=== PATIENT | female | born 1935 | race Caucasian/White ===

== ENCOUNTER → 2016-11-18 | Outpatient (CLI) | payer OTHER ==
[~2016-11-18] VITALS: Ht 165.1 cm; Wt 73.8 kg
[~2016-11-18] MED LIST: ALLEGRA ALLERG180 MG PO; AMLODIPINE BESYL5 MG PO; APAP500 PO; ASPIRIN EC81 M1 PO; ASPIRIN325; BENICAR40 MG PO; BISOPROLOL FUMA10 MG PO; BYSTOLIC 5 MG5 MG PO; BYSTOLIC10 MG PO; CALCIUM 600 +1 EAC5 PO; CENTRUM SILVER1 EAC4 PO; CLARITIN10 M2 PO; CRESTOR40 MG PO; EDARBYCLOR 40-1 EACH PO; FISH OIL 1,2001 EAC4 PO; GLUCOPHAGE500 MG PO; NAPROSYN500 MG PO; OCUVITE EYE +1 EACH PO; PRILOSEC40 MG PO; STOOL SOFTENER1 EAC2 PO; VESICARE 5 MG TA5 MG PO; VESICARE10 M1 PO
--- NOTE | ~2016-11-18 | H ---
[facility] [place] [address] HISTORY AND PHYSICAL Name: KUMAR BAUER Room #: REG JOHN Ed.#: [id number] Admission: 11/18/16 Attend Phys: Bradly Angela MD Discharge: Date of : 35 Report #: [id number] THIS REPORT FOR: //name// CC: Rosie Angela DATE OF REGISTRATION: 11/18/2016. Followup visit for L4-L5 spondylolisthesis, neural compression. Bilateral lower extremities numbness and low back pain. HISTORY OF PRESENT ILLNESS: The patient is here today requesting an epidural injection. Her last injection was in 2013. She has had very sporadic injections when her pain becomes severe and always had a good response. I reviewed her last films performed L4-L5 and her previous injection history. She is taking excellent care of herself doing water exercises and exercises at home on nearly every day. She says she has a strong score of anyone she knows. She looks good. She is hopeful, I will be able to provide some relief with the injection today. PAST MEDICAL HISTORY: Significant for coronary artery disease. She had stent placed in 2004. She has done a great job of maintaining her health since that time. She had a angioplasty also on her right femoral artery, a few years later and then nothing since. She has familial hyperlipidemia. The patient also has diabetes and diabetic neuropathy, which also is manifested with that of bilateral leg numbness and tingling in the feet. MEDICATIONS: Reviewed and reconciled from electronic medical record. She is not on blood thinner. ALLERGIES: None. PHYSICAL EXAMINATION: VITAL SIGNS: Blood pressure 112/54, heart rate 72, respirations 20. She is 5 feet, 5 inches, with a BMI of 27.1. GENERAL: She looks fit for age. EXTREMITIES: Moves easily from sitting to standing position, ambulates without difficulty. CHEST: Clear. Cardiac rhythm is regular. MUSCULOSKELETAL: Examination of the spine reveals excellent range of motion. She can almost put her palm on the floor. Extension was performed with some exacerbation of pain. Straight leg raising bilaterally is negative other than what numbness in the feet. [facility] [address] [place] [address] HISTORY AND PHYSICAL Name: KUMAR BAUER Juan Room #: REG [facility]#: [id number] Admission: 11/18/16 Attend Phys: Bradly Angela MD Discharge: Date of : 35 Report #: [id number] IMPRESSION: 1. Chronic low back pain with radiculopathy, bilateral. 2. Coronary artery disease. 3. Hyperlipidemia. 4. . RECOMMENDATIONS: Lumbar epidural injection under fluoroscopic guidance. PROCEDURE: She was taken to the fluoroscopic suite, placed prone, skin prepped with ChloraPrep. Skin anesthetized over L4-L5. A 20-gauge Tuohy epidural needle was advanced into the epidural space with loss of resistance technique. There was no blood or CSF, aspirated 1 mL of Omnipaque, injected with excellent spread of dye observed into the epidural space followed by 3 mL of 0.5% lidocaine mixed with 80 mg of triamcinolone. She tolerated the procedure well and was observed for 45 minutes and discharged with a followup visit as needed. By: 0911 0929 Bradly Angela MD /nt
[2016-11-18 08:39] VITALS: BP 112/54
== END | disposition home or self-care (01) ==
LOC: PAIN 06:31
DX: M54.16 Radiculopathy, lumbar region (principal); I25.10 Atherosclerotic heart disease of native coronary artery without angina pectoris; E78.5 Hyperlipidemia, unspecified

== ENCOUNTER → 2017-03-14 | Outpatient (CLI) | payer OTHER ==
[~2017-03-14] VITALS: Ht 165.1 cm; Wt 73.9 kg
[2017-03-14 09:13] VITALS: BP 130/65
== END | disposition home or self-care (01) ==
LOC: PAIN 06:39
DX: M54.16 Radiculopathy, lumbar region (principal); M43.16 Spondylolisthesis, lumbar region

== ENCOUNTER → 2017-12-15 | Outpatient (CLI) | payer OTHER ==
[~2017-12-15] VITALS: Ht 165.1 cm; Wt 74.2 kg
[~2017-12-15] MED LIST changes: +METAMUCIL POWD822 G2 PO; +VALACYCLOVIR1000 MG PO
--- NOTE | ~2017-12-15 | HPC ---
[facility] [place] [address] PAIN MANAGEMENT CONSULTATION Name: KUMAR BAUER Room #: REG JOHN Ed.#: [id number] Admission: 12/15/17 Attend Phys: Bradly Angela MD Discharge: Date of : 35 Report #: [id number] THIS REPORT FOR: //name// CC: Larry Izquierdo MD [facility] Rosie Angela DATE OF SERVICE: 12/15/2017 Followup visit for chronic low back pain with radiculopathy. The patient returns to the clinic today with primarily a right lumbar radiculopathy extending from the low back through the buttock and into the lower leg. Although this is the reason for her visit today and her primary pain, she has another very significant second pain in her left shoulder. She has degenerative osteoarthritis. She has followed with Dr. Muñoz. Dr. Muñoz has offered her a shoulder replacement, but she is not interested. She may benefit from a cortisone injection in her shoulder, but in the past when we have injected her back, she oftentimes has good results also with the absorption of the cortisone reducing inflammation in her shoulder joint. We decided that today we will proceed today with an injection once again hoping that we can get good coverage along the right side as before. I used a left paramedian approach in her last injection yet medicine seemed to spread well into the right lateral recess. She describes her last epidural injection as 100% successful for 4 months. MEDICATIONS: Reviewed and reconciled. She is on no blood thinners. For pain, she has listed only acetaminophen 2 tablets twice a day. Her maximum daily dose when the pain is severe is 2000 mg. ALLERGIES: None. PQRS review demonstrates a history of osteoarthritis involving the upper extremity, shoulders bilaterally, left worse than right. She is a fit and active 82-year-old with a BMI of 27.2. She denies use of opioid medication. She is not a fall risk at this time. Pain intensity is 7/10. PHYSICAL EXAMINATION: VITAL SIGNS: Blood pressure 195/82, heart rate 70 and respirations 18. GENERAL: She is alert and oriented. Very pleasant and easygoing. She gives an excellent history. She is able to move independently from sitting to standing position. Her gait is stable. HEENT: Normal. NECK: Supple. [address] [address] PAIN MANAGEMENT CONSULTATION Name: KUMAR BAUER Juan Room #: REG [facility] Jacki#: [id number] Admission: 12/15/17 Attend Phys: Bradly Angela MD Discharge: Date of : 35 Report #: [id number] CHEST: Examination of the chest is clear. CARDIAC: Rhythm is regular. MUSCULOSKELETAL: Examination of the shoulders bilaterally reveals arthropathy with pain in the left shoulder of a severe nature with internal and external rotation. She has weakness spreading to the deltoid, triceps and biceps. Technical Fellow strength is normal. Examination of the low back reveals rotational scoliosis and spondylosis. She has tenderness with forward flexion and extension. Extension reproduces a radicular pain into the right leg following an L4-L5 distribution. Sensation intact. Deep tendon reflexes are diminished in the lower extremities symmetrically. IMPRESSION: 1. Low back pain with radiculopathy, left L4-L5 distribution secondary to anterolisthesis. 2. Osteoarthritis, left shoulder. PROCEDURE: Epidural steroid injection under fluoroscopic guidance. She was taken to the fluoroscopic suite and placed prone. Skin was prepped with ChloraPrep. Skin anesthetized first on the left as before. I advanced the needle nicely into the epidural space, however, 0.5 mL of Omnipaque demonstrated spread almost exclusively into the left lateral recess. The needle was removed. I repositioned the needle from the right, but found it more difficult to enter the epidural space from that angle due to osteoarthritic changes and bone spurring. I returned back to the left and advanced the needle back into the epidural space, spreading on this occasion closer to the midline. When I injected 0.25 mL of Omnipaque, we demonstrated a right-sided spread as we had seen previously. I then injected a total of 3 mL of 0.5% lidocaine mixed with 80 mg of triamcinolone. She tolerated the procedure well. By the time the patient returned to the recovery room, she was having some weakness in her legs related to the local anesthetic effect. I do not believe that she had an intrathecal injection. She was watched about an hour longer than normal, but left in good condition and pain score on discharge was 0. Followup is planned as needed. No medications were ordered. By: [id number] Bradly Angela MD /nt
[2017-12-15 10:54] VITALS: BP 195/82
== END | disposition home or self-care (01) ==
LOC: PAIN 09-22 12:33
DX: M54.16 Radiculopathy, lumbar region (principal); G89.29 Other chronic pain; M19.012 Primary osteoarthritis, left shoulder; M43.16 Spondylolisthesis, lumbar region; Z79.82 Long term (current) use of aspirin; Z79.899 Other long term (current) drug therapy

== ENCOUNTER → 2018-08-14 | Outpatient (CLI) | payer OTHER ==
[~2018-08-14] VITALS: Ht 160 cm; Wt 70.6 kg
[~2018-08-14] MED LIST changes: -APAP500 PO; +KEFLEX500 M1 PO; +NORVASC5 MG PO; +TYLENOL EXTRA500 MG PO; +VOLTAREN GEL 1100 G2 TOP
--- NOTE | ~2018-08-14 | HPC ---
[facility] [address] [place] [address] PAIN MANAGEMENT CONSULTATION Name: KUMAR BAUER Room #: REG JOHN [facility]#: [id number] Admission: 08/14/18 Attend Phys: Bradly Angela MD Discharge: Date of : 35 Report #: [id number] THIS REPORT FOR: //name// CC: Rosie Angela DATE OF SERVICE: 08/14/2018 Followup visit for lumbar spondylolisthesis, chronic low back pain with radiculopathy. The patient returns to pain clinic today with her daughter. She would like another epidural injection. The record will reflect that she has had excellent response to these injections typically lasting 3+ months. Her last lumbar epidural injection was performed in December. She does have a rather tight stenosis at that level and on one of her injections she did get rather numb, required to stay in the recovery room for a couple of extra hours until the local anesthetic dissipated. This may have been in a subarachnoid injection or perhaps a subdural but not subarachnoid injection. Today, she reports her pain level 8 and her usual location is low back radiating down into the legs. She denies significant weakness. She also complains bitterly of bilateral shoulder pain. She has been seen by an orthopedic surgeon who has provided injections for her and I have done so as well with limited improvement. PRP may be of some benefit. PQRS REVIEW: 1. Ongoing osteoarthritis of bilateral shoulders. 2. BMI is 27. 3. Vital signs: Blood pressure 137/59, heart rate 67. 4. Pain intensity 8 of the low back radiating into legs with movement. 5. She has not fallen in the last 3 months and does not appear to be a fall risk. 6. No blood thinner. 7. No evidence of hypertension. 8. She is not on opioid agreement. 9. She does not use tobacco or alcohol. PHYSICAL EXAMINATION: Reveals a pleasant 82-year-old, alert and oriented. No signs of depression, anxiety or dementia. She is very sharp and direct. Blood pressure 137/59, heart rate 67, respirations 16, O2 sat 97. She is afebrile. She is able to move from sitting to standing position, but walks with mild antalgic feature. She has pain with forward flexion, extension and tenderness across the low back. [address] [address] PAIN MANAGEMENT CONSULTATION Name: KUMAR BAUER Room #: REG [facility]#: [id number] Admission: 08/14/18 Attend Phys: Bradly Angela MD Discharge: Date of : 35 Report #: [id number] IMPRESSION: Chronic low back pain with radiculopathy secondary to lumbar spondylolisthesis, L4-L5. RECOMMENDATIONS: Repeat epidural injection under fluoroscopic guidance. PROCEDURE: She was taken to fluoroscopic suite, placed prone, skin prepped with ChloraPrep. Skin anesthetized over the L4-L5 interspace. A 20-gauge Tuohy epidural needle was advanced in the epidural space with loss of resistance technique. No blood or CSF was aspirated. A 1 mL of Omnipaque injected. Good spread of dye observed in the epidural space, followed by 3 mL of 0.5% lidocaine mixed with 80 mg of triamcinolone. She tolerated the procedure well and was observed for 45 minutes and discharged. Follow up as needed. By: [id number] 1130 Bradly Angela MD /nt
[2018-08-14 14:40] VITALS: BP 170/69
== END | disposition home or self-care (01) ==
LOC: PAIN 00:45
DX: M43.16 Spondylolisthesis, lumbar region (principal); M54.16 Radiculopathy, lumbar region; G89.29 Other chronic pain; M19.012 Primary osteoarthritis, left shoulder; M19.011 Primary osteoarthritis, right shoulder; Z79.899 Other long term (current) drug therapy; Z79.82 Long term (current) use of aspirin

== ENCOUNTER → 2019-02-19 | Outpatient (CLI) | payer OTHER ==
[~2019-02-19] VITALS: Ht 160 cm; Wt 73.8 kg
[~2019-02-19] MED LIST changes: +CLEARLAX17 GM PO; +ESTRADIOL42.5 GM VAG; +FLUTICASONE PRO16 GM NASAL; +IRBESARTAN300 MG PO; +METAMUCIL0.4 GM PO; +METRONIDAZOLE59 ML TOP; +PRILOSEC OTC20 MG PO; -PRILOSEC40 MG PO; +PROBIOTIC1 EAC1 PO
--- NOTE | ~2019-02-19 | HPC ---
[facility] [place] [address] PAIN MANAGEMENT CONSULTATION Name: KUMAR BAUER Room #: REG Elly Wadr.#: [id number] Admission: 02/19/19 ������������������ Attend Phys: Bradly Angela MD Discharge: ������������������ Date of : 35 Report #: [id number] THIS REPORT FOR: //name// CC: Rosie Angela DATE OF SERVICE: 02/19/2019 Followup visit for severe low back pain with radiculopathy secondary to anterolisthesis of L4 on L5. The patient returns to pain clinic today with requesting an epidural injection. She has had a good response to injection and request that I inject her exactly in the same location as I did previously. She said she had months of good pain relief. I reviewed her MRI and she has a grade 1 anterolisthesis with a bulging of an uncovered disk along with marked facet hypertrophy and ligamentum thickening with severe trefoil type central canal narrowing and crowding of the lumbosacral nerve roots. There is [id number] right and left neural foraminal narrowing at that level. We have discussed surgical options in the past that she will have no part of that. She has a second pain generator is her left shoulder. She has seen Dr. Clifford Lehman. I have suggested that she continue to see me and followup for further monitoring and evaluation. She would be a candidate for reverse shoulder replacement, but does not want any part of it. The severe shoulder pain really is her primary limiting pain, I think although the low back, pain limits her mobility. She would like the injection for the low back. PHYSICAL EXAMINATION: She is pleasant, alert, oriented, 83-year-old. She moves from sitting to standing position, walks with antalgic features. Blood pressure is 183/73, heart rate 66, respirations 18. Examination of the shoulders bilaterally, pain in all range of motion localized tenderness. There is maybe a small effusion on the left. Examination of the low back reveals tenderness across the lumbosacral segment. Bilateral straight leg raising pain is noted. There is slight scoliosis noted of the spine with some rotation. IMPRESSION: 1. Severe low back pain with radiculopathy secondary to anterolisthesis grade 1 L4-L5. 2. 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 3. Bilateral osteoarthritis involving shoulders. [address] [address] PAIN MANAGEMENT CONSULTATION Name: KUMAR BAUER [id number] Admission: 02/19/19 ������������������ Attend Phys: Bradly Angela MD Discharge: ������������������ Date of : 35 Report #: [id number] Recommendation for today epidural steroid injection, L4-L5 under fluoroscopic guidance. PROCEDURE: She was taken to fluoroscopic suite, placed prone, skin prepped with ChloraPrep. Skin anesthetized over the L4-L5 interspace. A 20-gauge Tuohy epidural needle was advanced in the epidural space with loss of resistance technique. There was no blood or CSF aspirated. A 1 mL of Omnipaque injected. Good spread of dye observed in the epidural space followed by 3 mL of 0.5% lidocaine mixed with 80 mg of triamcinolone. She tolerated the procedure well and was observed for 45 minutes and discharged. Followup visit planned on an as needed basis for treatment. ��������������������������������������������� ���������������������������������������� By: ��������������������������������������������� 1728 0025 Bradly Angela MD /nt
[2019-02-19 15:28] VITALS: BP 183/73
--- NOTE | 2019-02-19 15:59 | NUR ---
Pain Clinic Assessment: 1. History of Osteoarthritis: Not Applicable History of Rheumatoid Arthritis: Left Upper Extremity Right Upper Extremity 2. Height: 5 ft. 3 in. 160.0 cm. Weight: 162.6 lb. oz. 73.755 kg. Patient's BMI: 28.8 3. Vital Signs: BP: 183/73 Pulse: 66 Resp: 18 Temp: 02 Sat: 98 ECG Mon: 4. Pain Intensity: 6 5. Fall Risk: Dizziness: N Needs help standing or walking: N Fallen in the last 3 months: N Fall risk comments: 6. Patient on Blood Thinner: None 7. History of Hypertension: Y 8. Opioid Therapy greater than 6 weeks: N Opiate Contract Signed: 9. Risk Assessment Tool Provided: 0-low risk 10. Functional Assessment Tool: 43/ 11. Recreational Drug Use: Never Drug Type: Tobacco Use: Never Smoker Tobacco Type: Amount or Packs/day: How Many Years: Alcohol Use: No Frequency: Quant:
== END | disposition home or self-care (01) ==
LOC: PAIN 07:03
DX: M43.16 Spondylolisthesis, lumbar region (principal); M47.22 Other spondylosis with radiculopathy, cervical region; M19.012 Primary osteoarthritis, left shoulder; M19.011 Primary osteoarthritis, right shoulder; Z79.899 Other long term (current) drug therapy

== ENCOUNTER → 2019-04-09 | Outpatient (CLI) | payer OTHER ==
[~2019-04-09] VITALS: Ht 167.6 cm; Wt 72.1 kg
--- NOTE | ~2019-04-09 | HPC ---
[facility] [place] [address] PAIN MANAGEMENT CONSULTATION Name: KUMAR BAUER Room #: REG JOHN Ed.#: [id number] Admission: 04/09/19 ������������������ Attend Phys: Bradly Angela MD Discharge: ������������������ Date of : 35 Report #: [id number] THIS REPORT FOR: //name// CC: Rosie Angela DATE OF SERVICE: 04/09/2019 Followup visit for chronic low back pain and radiculopathy. The patient returns to pain clinic today for a consultation. I spent 25 minutes with her today in consultation and examination. She has chronic pain and a grade 1 anterolisthesis as well as bulging of the L4-L5 disk creating moderate to severe spinal stenosis to 6 mm at that level. We discussed options. I discussed 6 separate options with her; medication management, injection therapies, physical therapy and exercise, advanced therapies included spinal cord stimulation, minimally invasive surgical techniques for stenosis including MILD and open decompressive laminectomy. We went through each of these options. As noted frequently throughout the chart, she is not interested in surgery. She has done well with her left shoulder, treated by Dr. Lehman. An injection provided in his office has done her worlds of good. She complains mostly today of pain across her low back with radiation to the right hip. PQRS REVIEW: 1. History of degenerative osteoarthritis involving shoulders primarily. 2. Five feet 6 inches, 159 pounds, BMI of 25.7. 3. Vital signs, blood pressure 142/67, heart rate 75, O2 sat 97, 16 respirations. 4. Pain intensity 5/10 on average. 5. She has fallen once in the last 3 months, but needs no help standing or walking. She is not dizzy. I would consider based on history of fall risk. 6. No blood thinners. 7. She does have a history of hypertension and she is treated with medications provided by her primary care physician, Dr. Rosie Ibarra. All of her medications were reviewed and reconciled. 8. She takes no opioids. 9. She completed an opioid risk score of 0. 10. Functional assessment score is 43/70 suggesting a fair impact of her pain on activities of daily living. 11. She denies use of tobacco and alcohol. PHYSICAL EXAMINATION: Vital signs as noted above. She is pleasant, alert and oriented, without any signs of anxiety, depression or dementia. She can [facility] [address] [place] [address] PAIN MANAGEMENT CONSULTATION Name: KUMAR BAUER Room #: REG CLI Mickey#: [id number] Admission: 04/09/19 ������������������ Attend Phys: Bradly Angela MD Discharge: ������������������ Date of : 35 Report #: [id number] independently move from sitting to standing position, walks with a moderate antalgic features. She has tenderness of the shoulder but the left is better after her injection. Decreased range of motion in all planes. Examination of the low back reveals tenderness across the lumbosacral segment and bilateral straight leg raising discomfort. There is a slight rotational scoliosis noted. Sensation is intact with no focal numbness. She has mild generalized weakness. MRI again showing grade 1 anterolisthesis at L4-L5 as the prominent finding with moderate to severe central stenosis as well as severe left and right lateral recess stenosis. IMPRESSION: 1. Chronic low back pain with radiculopathy secondary to above. 2. Spondylosis of cervical and lumbar spine. 3. Osteoarthritis involving shoulders. RECOMMENDATION: After our discussion, we will continue to support the less invasive techniques for pain management, particularly remaining active. Use of Tylenol as a medication to ease discomfort. Epidural injections can be provided periodically as they provide some measure of relief for a short time and I suspect that this will be true going forward. She may want to consider a trial of spinal cord stimulation or perhaps a consultation for minimally invasive lumbar decompression, which I think would be more helpful than the Vertos procedure. She again stressed her reluctance to pursue any surgical options. Follow up as needed. ��������������������������������������������� ���������������������������������������� By: ��������������������������������������������� 1300 2124 Bradly Angela MD /nt
[2019-04-09 08:55] VITALS: BP 142/67
--- NOTE | 2019-04-09 09:03 | NUR ---
Pain Clinic Assessment: 1. History of Osteoarthritis: Not Applicable History of Rheumatoid Arthritis: Left Upper Extremity Right Upper Extremity 2. Height: 5 ft. 6 in. 167.6 cm. Weight: 159.0 lb. oz. 72.122 kg. Patient's BMI: 25.7 3. Vital Signs: BP: 142/67 Pulse: 75 Resp: 16 Temp: 02 Sat: 97 ECG Mon: 4. Pain Intensity: 5 5. Fall Risk: Dizziness: N Needs help standing or walking: N Fallen in the last 3 months: Y Fall risk comments: 6. Patient on Blood Thinner: None 7. History of Hypertension: Y 8. Opioid Therapy greater than 6 weeks: N Opiate Contract Signed: 9. Risk Assessment Tool Provided: 0-low risk 10. Functional Assessment Tool: 43/ 11. Recreational Drug Use: Never Drug Type: Tobacco Use: Never Smoker Tobacco Type: Amount or Packs/day: How Many Years: Alcohol Use: No Frequency: Quant:
== END ==
LOC: PAIN 06:46
DX: M47.26 Other spondylosis with radiculopathy, lumbar region (principal); M47.812 Spondylosis without myelopathy or radiculopathy, cervical region; M51.16 Intervertebral disc disorders with radiculopathy, lumbar region; M43.16 Spondylolisthesis, lumbar region; M48.061 Spinal stenosis, lumbar region without neurogenic claudication; M19.012 Primary osteoarthritis, left shoulder; M19.011 Primary osteoarthritis, right shoulder; G89.29 Other chronic pain

== ENCOUNTER → 2019-06-13 | Outpatient (CLI) | payer OTHER | LOC: CAT 07:08 | PROVIDERS: Specialist | DX: N28.1 Cyst of kidney, acquired (principal); I25.10 Atherosclerotic heart disease of native coronary artery without angina pectoris; K80.20 Calculus of gallbladder without cholecystitis without obstruction; N39.0 Urinary tract infection, site not specified ==

== ENCOUNTER → 2019-11-06 | Outpatient (CLI) | payer OTHER | LOC: SJCVC 09:36 | DX: I25.10 Atherosclerotic heart disease of native coronary artery without angina pectoris (principal); I12.9 Hypertensive chronic kidney disease with stage 1 through stage 4 chronic kidney disease, or unspecified chronic kidney disease; E11.22 Type 2 diabetes mellitus with diabetic chronic kidney disease; N18.9 Chronic kidney disease, unspecified; E11.21 Type 2 diabetes mellitus with diabetic nephropathy; I65.29 Occlusion and stenosis of unspecified carotid artery; I73.9 Peripheral vascular disease, unspecified; E78.00 Pure hypercholesterolemia, unspecified; K21.9 Gastro-esophageal reflux disease without esophagitis; M15.9 Polyosteoarthritis, unspecified; Z79.82 Long term (current) use of aspirin; Z79.899 Other long term (current) drug therapy ==

== ENCOUNTER → 2019-11-12 | Outpatient (CLI) | payer OTHER | LOC: SJCVCIMAG 08:25 | DX: I08.2 Rheumatic disorders of both aortic and tricuspid valves (principal); I45.10 Unspecified right bundle-branch block; R00.0 Tachycardia, unspecified; I25.10 Atherosclerotic heart disease of native coronary artery without angina pectoris; E11.22 Type 2 diabetes mellitus with diabetic chronic kidney disease; N18.9 Chronic kidney disease, unspecified; Z79.899 Other long term (current) drug therapy ==

== ENCOUNTER → 2020-04-11 | Outpatient (CLI) | payer OTHER ==
[~2020-04-11] MED LIST changes: +ADULT ASPIRIN R81 MG PO; +HYOSCYAMINE0.125 M1 PO; +METHENAMINE1 GM PO; +VITAMIN C500 M2 PO; +WELLBUTRIN SR150 MG PO
== END ==
LOC: SJCVC 09:08
PROVIDERS: ATTEND Internal Medicine Cardiovascular Disease
DX: I45.2 Bifascicular block (principal); R94.31 Abnormal electrocardiogram [ECG] [EKG]; I25.10 Atherosclerotic heart disease of native coronary artery without angina pectoris; I73.9 Peripheral vascular disease, unspecified; I65.29 Occlusion and stenosis of unspecified carotid artery; I10 Essential (primary) hypertension; E78.00 Pure hypercholesterolemia, unspecified; K21.9 Gastro-esophageal reflux disease without esophagitis; R32 Unspecified urinary incontinence; E11.9 Type 2 diabetes mellitus without complications; M15.9 Polyosteoarthritis, unspecified; Z82.49 Family history of ischemic heart disease and other diseases of the circulatory system; Z79.899 Other long term (current) drug therapy; Z79.82 Long term (current) use of aspirin

== ENCOUNTER 2020-04-14 05:23 | Inpatient (IN) | payer OTHER ==
[~2020-04-14] VITALS: Ht 170.2 cm; Wt 70.4 kg
--- NOTE | ~2020-04-14 | EMS ---
[facility] [address] [place] [address] EMS Patient Care Report Name: OMER BAUER Room #: REG TIARRA Echeverria#: [id number] Admission: 04/14/20 Attend Phys: Discharge: Date of : 35 Report #: [id number] THIS REPORT FOR: //name// Report Transmitted: 04/14/2020 06:06 EMS Care Summary [facility] MED-ACT Incident [id number] @ 04/14/2020 04:23 Incident Location [address] [place] [address] Patient KUMAR BAUER Female, 84 Years 1935 Patient Address [address] [place] [address] Patient History Hypertension (HTN),Urinary Tract Infection (UTI),Anxiety,Genital Herpes, Patient Allergies No known allergies, Patient Medications Nebivolol, Wellbutrin, Omeprazole, Estrace, Amlodipine, Chief Complaint she's been babbling and talking randomly-per son Disposition Transported No Lights/[place] Dispatch Reason Psychiatric Problem/Abnormal Behavior/Suicide Attempt Transported To [facility] Narrative Medic 1149 dispatched to Behavioral. Pt's son states that over the last 3 days, pt has become more and more confused and repeatedly rambles on about random things. Son states that today it has gotten worse and he has not been able to effectively communicate with pt due to her inability to focus in a [facility] [address] [place] [address] EMS Patient Care Report Name: OMER BAUER Room #: REG [facility]#: [id number] Admission: 04/14/20 Attend Phys: Discharge: Date of : 35 Report #: [id number] conversation. Son states that over the last couple of hours she has been talking repeatedly about needing to find a little sliver of metal in her bathroom and that she needs bjxg-do-snxe contact in order to have a conversation. Son states pt has hx of frequent UTI's about every 5 weeks or so. Son states that he has never seen the pt this confused/ uncooperative. No recent hx of cough, fever, contact with COVID pt's. Pt normally able to live on her own but may be experiencing anxiety because she is getting ready to move in to a chcf in approx 2 weeks per son. Upon arrival, pt found sitting upright on the toilet. Pt alert and speaking to Q33. Pt would repeatedly refuse to speak to other crew members and stated that she needs fzqf-lf-ybui contact and that she needs help finding the piece of metal in the box in her bathroom. No respiratory distress noted. Skin warm, dry, pink. Pt initially refused to let us acquire a set of vitals but then allowed 1 set to be taken. Pt refused to let us take a blood sugar. Pt able to stand but when asked to walk, refused to do so and would continue to state that she will not go until she finds the metal. V/S acquired on scene. Pt agreed to go to the hospital but when stood up, she refused to walk to cot. 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 Pt buckled in and taken to ambulance. Subsequent V/S differed due to pt refusing to let us touch her. Pt transported in position of comfort. Upon arrival, pt moved from cot to bed via sheet drag with no incident. Report given to ORGANIZATIONAL CONSULTANT. Medic 1149 clear. 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 It is designed to provide pertinent information for the following purposes: continuity of care, clinical quality, and state data reporting. The complete legal record is available to ED staff and administrators of the receiving hospital in [employer]'s Patient Tracker. All data is provided "as is."
[~2020-04-14 05:23] MED LIST changes: -ADULT ASPIRIN R81 MG PO; -HYOSCYAMINE0.125 M1 PO; -METHENAMINE1 GM PO; -VITAMIN C500 M2 PO; -WELLBUTRIN SR150 MG PO
[2020-04-14 05:24] VITALS: BP 188/96
[2020-04-14 06:01] LABS: ABSOLUTE NEUTROPHILS 7.2 thou/uL (1.4-8.2); BASOPHILS 0.4 % (0.0-2.0); EOSINOPHILS 0.2 % (0.0-3.0); HEMOGLOBIN 11.9 gm/dL (12.0-15.0); MCH 36.6 pg (26.0-34.0); MCV 107.8 fL (80.0-100.0); MONOCYTES 7.5 % (1.0-8.0); PLATELET COUNT 184 thou/uL (150-400); POLYS 83.9 % (36.0-66.0); RBC 3.25 mil/uL (4.20-5.00); RDW 15.4 % (10.5-14.5); WBC 8.6 thou/uL (4.0-11.0)
[2020-04-14] MEDS ORDERED: ADULT ASPIRIN R81 MG PO (06:07)
[2020-04-14] MEDS ORDERED: METHENAMINE1 GM PO (06:10)
[2020-04-14] MEDS ORDERED: VITAMIN C500 M2 PO (06:10)
[2020-04-14] MEDS ORDERED: WELLBUTRIN SR150 MG PO (06:12)
[2020-04-14] MEDS ORDERED: HYOSCYAMINE0.125 M1 PO (06:12)
[2020-04-14 06:14] LABS: CALCIUM 9.3 mg/dL (8.5-10.1); CREATININE 1.1 mg/dL (0.6-1.0); MAGNESIUM 1.9 mg/dL (1.8-2.4); POTASSIUM 4.2 mmol/L (3.5-5.1)
[2020-04-14 07:52] LABS: URINE BILIRUBIN NEGATIVE (Negative); URINE BLOOD 3+ (Negative); URINE CLARITY CLOUDY; URINE COLOR YELLOW; URINE GLUCOSE-RANDOM* NEGATIVE (Negative); URINE KETONES NEGATIVE (Negative); URINE NITRITE-REFLEX NEGATIVE (Negative); URINE PROTEIN (DIPSTICK) 2+ (Negative); URINE UROBILINOGEN 0.2 E.U./dl (0.2-1.0)
[2020-04-14 08:01] LABS: URINE LEUKOCYTES-REFLEX 3+ (Negative)
[2020-04-14 08:49] LABS: URINE RBC 3-10 Few /HPF (0-2)
[2020-04-14 08:50] LABS: BACTERIA-REFLEX >30 Many /HPF (None Seen); CASTS None Seen /LPF (None Seen); CRYSTALS None Seen /LPF (None Seen); SQUAMOUS 0-3 Few /LPF (0-3); URINE WBC-REFLEX >25 Many /HPF (0-5)
--- NOTE | 2020-04-14 08:50 | EKG ---
[facility] [place] [address] ELECTROCARDIOGRAM REPORT Name: OMER BAUER Room #: REG [facility].#: [id number] Admission: 04/14/20 Attend Phys: Discharge: Date of : 35 Report #: [id number] THIS REPORT FOR: cc: Rosie Ibarra MD, Marsha M. MD Lundgren, Craig H. MD [facility] ~ THIS REPORT FOR: //name// [facility] ED Test Date: 2020-04-14 Test Time: 06:20:55 Pat Name: OMER BAUER Department: Room: Gender: F Online Content Editor: dru arvizu rn : 1935 Requested By: Ehsan Herron Order Number: [id number] MD: Gerson Edwards Measurements Intervals [place] Rate: 89 P: 43 MN: 210 QRS: 13 QRSD: 139 T: 4 QT: 413 QTc: 503 Interpretive Statements Sinus rhythm with first-degree AV block Right bundle branch block Left anterior hemiblock Compared to ECG 03/07/2005 06:41:58 Right bundle-branch block now present [place] has shifted leftward Electronically Signed On 04-14-2020 8:50:41 CDT by Gerson Edwards [email or web address] <ELECTRONICALLY SIGNED> By: Gerson Edwards MD, [facility] 04/14/2050 9 9 Gerson Edwards MD, [facility] /EPI
[2020-04-14 15:34] LABS: APTT 23.4 Seconds (24.5-32.8); PROTIME 10.7 Seconds (9.3-11.4)
[2020-04-14 16:09] VITALS: BP 124/53
[2020-04-15 13:11] VITALS: BP 155/60
[2020-04-15 13:13] VITALS: BP 155/60
[2020-04-15 13:25] VITALS: BP 174/74
[2020-04-15 14:10] LABS: CALCIUM 8.4 mg/dL (8.5-10.1); CREATININE 1.2 mg/dL (0.6-1.0); POTASSIUM 3.9 mmol/L (3.5-5.1)
--- NOTE | 2020-04-15 15:57 | NUR ---
Saray spoke with pt's son Koby and he reported that this pt was living in [place] and was transisitoning to [place] and became combative. Koby thinks that she might benefit from memory care and is looking into the one his mom liked. He could not remember the name and was going to call back to send the referral. Saray completed the intake a TP.
[2020-04-15 16:33] VITALS: BP 153/61
--- NOTE | 2020-04-15 18:16 | NUR ---
Admitted via ER for increased confusion, agitation and UTI. Na++ 126, repeat 136. Alert and orientated X4. Calm and cooperative, denies SI/HI. Occasional confused statement. Hx of frequent UTIs q 5-6 wks for past 5-6 yrs. Borderline DM per son who is DPOA. Hx HLD, HTN, cosmetic eye and breast surgery, genital herpes. Dxed with UTI in ER, hematuria. Breath sounds clear t/o. Reg HR auscultated. Color pink with brisk capillary refill and palpable peripheral pulses. Mucous membranes moist. Hematuria per toilet, multiple voids. Active bowel sounds over soft, rounded abdomen. Reports BM yesterday. Consents obtained from son via phone, privacy code given. NS hung and infusing per L AC 20 g jelco. Site soft and flat w/o s/o infection, site covered with tegaderm.
[2020-04-15 19:42] VITALS: BP 156/99
--- NOTE | 2020-04-16 04:19 | NUR ---
04-15-20 CARE TRANSFERED 1914 OBSERVED PT SITTING IN RECLINER IN DAY ROOM. 193 PT AAOX2, VSS, RR EVEN AND NONLABORED RA, ASSISTED PT TO BATHROOM AND NOTED SMALL LOOSE BROWN STOOL WITH YELLOW URINE IN TOILET. PT DENIES SI/SH/HI/VAH. PT REPORTS GENERALIZED PAIN AND SCALED AT 5 ON O-10 SCALE. PT PRESENTED WITH SOME CONFUSION ON WHY SHE IS HERE BUT WAS CALM AND COOPERATIVE THROUGHOUT NURSING ASSESSMENT. DURING MEDICATION ADMIN PT HAD NO DIFFCULTIES. LATER NOTED PT BECAME AGITATED PRIOR TO GOING TO BED, BUT WAS EASILY REDIRECTED AND REASSESSMENT ON PAIN COMPLETED AND PT SCORED PAIN AT A 2 ON 0-10 SCALE. ZERO ACUTE DISTRESS NOTED, PT WILL CONTINUE TO BE MONITOR PER [facility] PROTOCOL.
[2020-04-16 06:26] LABS: CALCIUM 8.9 mg/dL (8.5-10.1); POTASSIUM 4.1 mmol/L (3.5-5.1)
[2020-04-16 07:52] VITALS: BP 186/68
[2020-04-16 11:58] VITALS: BP 186/68
--- NOTE | 2020-04-16 13:20 | NUR ---
O.Katie. RECEIVED ORDERS FROM DR. SOLANO FOR TYLER AND ADL EVALUATIONS. ADL EVALUATION COMPLETED. HOWEVER, Pt NOT ABILE TO PARTICIPATE EFFECTIVELY WITH THE TYLER DUE TO SIGNIFICANT DIFFICULTY FOLLOWING DIRECTIONS. INFORMED DR. SOLANO IN PERSON.
--- NOTE | 2020-04-16 13:26 | NUR ---
PATIENT WAS SITTING IN A RECLINER IN DAYROOM WHEN CARE ASSUMED. PATIENT HAS BEEN CALM, COOPERATIVE WITH CARE. PATIENT TOOK ALL MORNING MEDICATION CRUSHED IN APPLE SOURCE WITH LOTS OF ENCOURAGEMENT. PATIENT IS CONFUSED, NOTED RESPONDING TO INTERNAL STIMULI, ATTEMPTING TO GRAB ON EMPTY AIR. PATIENT STARING AT YOU WHILE TALKING TO HER. PATIENT IN UNABLE TO RESPOND APPROPRIATELY TO ASSESSMENT QUESTIONS DUE TO COGNITIVE IMPAIRMENT. APPETITE IS POOR, PATIENT TAKES FEW BITES OF MEALS, ICECREAM OFFERED, SHE TOOK A FEW BITES DESPITE ENCOURAGEMENT FROM THIS PRESS CATCHER. PATIENT ASSISTED TO BATHROOM BY STAFF. AFFECT IS FLAT/BLUNTED, MOOD IS DEPRESSED. NO AGITATION OR AGGRESSIVE BEHAVIOR NOTED AT THIS TIME, WILL CONTINUE TO ENCOURAGE PO INTAKE, AND MONITOR FOR SAFETY.
[2020-04-16 16:25] VITALS: BP 176/70
[2020-04-16 20:50] VITALS: BP 169/79
[2020-04-16 23:00] VITALS: BP 169/79
--- NOTE | 2020-04-16 23:17 | H ---
[facility] [address] [place] [address] HISTORY AND PHYSICAL Name: OMER BAUER Room #: 528A-A ADM IN M.R.#: [id number] Admission: 04/14/20 Attend Phys: Corona Read DO Discharge: Date of : 35 Report #: [id number] THIS REPORT FOR: cc: Rosie Ibarra MD,Corona Comer MD, DO ~ CC: Corona Ibarra DATE OF SERVICE: 04/14/2020 INPATIENT PSYCHIATRIC EVALUATION ATTENDING PHYSICIAN: Corona Read DO. HISTORY OF PRESENT ILLNESS: The patient is currently a bed hold in the Emergency Room due to delay in COVID-[address] Ciro Mathis served as the hospitalist, will provide consultation once she is moved up to the [facility]. CHIEF COMPLAINT: Presentation due to altered mental status for the last few days. HISTORY OF PRESENT ILLNESS: This is an 84-year-old female, currently residing independently, brought in by her son, Koby. The patient has had frequent urinary tract infections. She is a patient of Dr. Ezequiel Izquierdo. Dr. Izquierdo called me this morning. Apparently, he had started the patient on Wellbutrin last week and then some Xanax this weekend. The patient became agitated, manic-like, and at this point, she is referred for psychiatric admission. The patient on 04/11, seemed off, with some belief she was stressed due to moving into assisted living facility, Wellbutrin 150 mg daily was started. Symptoms worsened. She was given Xanax evening of 04/12 and yesterday morning and states she has "been going nonstop" since yesterday and called EMS around 4:00 a.m. today. The patient is manic and continuous activity, folding clothes, speaking continuously with random nonsensical statements. She has been confused in the past with UTIs, but he states she has never been like this. She was mumbling continuously this morning, does not say 'hi' or answer questions. The patient was apparently "stopping the way of paramedics," had to be lifted in a stretcher. MEDICAL HISTORY: Two cardiac stents in 2004, hyperlipidemia, angioplasty, right leg artery, bilateral cataract surgery 01/2007. MEDICATIONS: Her home med list which I got from her son, Koby includes Tylenol [facility] [address] [place] [address] HISTORY AND PHYSICAL Name: OMER BAUER Room #: 528A-A ADM IN .R.#: [id number] Admission: 04/14/20 Attend Phys: Corona Read DO Discharge: Date of : 35 Report #: [id number] Extra Strength in the morning and afternoon 500 mg, Fartun 180 mg in the a.m., aspirin unspecified dose daily in the p.m., Estrace 0.01% cream for vaginal dryness as needed, Metamucil oral laxative, nebivolol 20 mg oral in the a.m., omeprazole 40 mg oral in the a.m., solifenacin for incontinence 10 mg in the a.m., it sounds like that is Vesicare, valacyclovir 1 gram in the a.m. for viral suppression, Ocuvite for eyes, irbesartan 300 mg daily, ClearLax, metronidazole as needed, stool softener twice daily, hyoscyamine 0.125 mg oral daily, recently started on Wellbutrin 150 mg oral daily. SOCIAL HISTORY: No tobacco, no alcohol, no recreational drug use. REVIEW OF SYSTEMS: 10-point review of systems could not be obtained early this morning in the ER. When I re-interviewed her she denied constitutional pain, denied eye pain. HENT: Denies problems. RESPIRATORY: Denied problems. CARDIOVASCULAR: Denies problems. GASTROINTESTINAL: Denied problems. GENITOURINARY: Includes hematuria, dysuria. MUSCULOSKELETAL: No complaints. Supine in ER gurney. Gait not tested. SKIN: No complaints. NEUROLOGIC: Denies weakness, headache or loss of consciousness. Denies fever, chills, malaise, unexplained weight change. All other review of systems was negative. Weight 72.58 kilos. LABORATORY DATA: Hematology: Hemoglobin 7.9, white count 8.6, platelets 194. Coags: PT 10.7, INR 1.08, PTT 23.4. Chemistries: Sodium 126, potassium 4.2, chloride 91, bicarbonate 23, anion gap 12, BUN 19, creatinine 1.1, estimated GFR 47, glucose 159. Lactic acid was 1.1, calcium 9.3, magnesium 1.9. Urinalysis showed 2+ protein, 3+ blood, 3+ leukocyte esterase, positive white blood cell count, bacteria showed greater than 30 per high power field. Urinalysis has been sent, it looks like there are 2 blood cultures pending as well. Imaging today renal ultrasound on the , showed thickened bladder wall consistent with chronic cystitis, large postvoid residuals, 7 cm upper pole right renal cyst. No evidence of obstructive uropathy. Head CT done on 04/14, showed atrophy appropriate for the patient's age, mild microvascular changes present bilaterally. No large cortical infarct, hemorrhage, mass effect or midline shift. Chest x-ray showed no acute cardiopulmonary processes. COVID-19 PCR is pending. MENTAL STATUS EXAMINATION: This is a well-developed, ill-appearing [facility] [address] [place] [address] HISTORY AND PHYSICAL Name: OMER BAUER Room #: 528A-A ADM IN M.R.#: [id number] Admission: 04/14/20 Attend Phys: Corona Read, Discharge: Date of : 35 Report #: [id number] female appearing at least stated age. Attention fair to limited. Concentration limited. Speech soft, normal rate. Thought process linear and limited. Thought content, focused on the present and she was at [facility]. Orientation, did not know the date, knew the month, knew the year. Mood and affect congruent, constricted. No psychomotor agitation. No psychomotor retardation. Denied SI or HI. Denied auditory, visual, or tactile hallucinations. Denied nightmares, flashbacks. Education level, reports Bachelor's degree, one from [employer] in [place]. retired is her main activity. She is . FORMULATION: An 84-year-old female was referred for admission by Dr. Izquierdo after apparent adverse medication reaction in the setting of recent approximately 6-7 month history of major neurocognitive disorder. DIAGNOSES: At this time, major neurocognitive disorder, likely due to Alzheimer's disease, delirium secondary to urinary tract infection resolving, number of medical problems including atrial fibrillation, seasonal allergies; hypertension. PLAN: Evaluate and stabilize, will bring her up to the [facility] as soon as her COVID-19 PCR is negative. Regarding her medications given she had some jas bleeding, I would hold her aspirin at this time. We will order nebivolol for her, valacyclovir and stool softener. She is not requiring antipsychotics. We will hold off so I get a better evaluation, I am going to see her in [facility]. Time spent on interview, review of records, coordination of care is at least 60 minutes, greater than 50% of the time was spent in review of records, coordination of care. STRENGTHS: She is insured. She has a large supportive family. WEAKNESSES: Multiple morbidities, advancing age, having a neurodegenerative disorder. <ELECTRONICALLY SIGNED> By: Corona Read DO 04/16/20 2317 [id number] Corona Read DO /nt
--- NOTE | 2020-04-17 02:49 | NUR ---
Assumed care of patient this pm shift. Patient was sitting in the mileu during assessment. At the beggining of assessment patient was silent and would not speak to the RN. Patient instead just stared out the window. After some time patient did answer questions. Patient denies pain. Patient denies hi/si. Patients affect is flat. Patients assessment shows no signs of acute distress. Patient is a falls risk and has on a yellow shirt. Patient was seated in a wheelchair and ambulates via wheelchair. Patient is alert and oriented to self only. Patient did not have any questions or concerns at this time. We will continue to monitor per hospital protocol.
[2020-04-17 09:06] VITALS: BP 158/94
[2020-04-17 09:47] VITALS: BP 158/94
--- NOTE | 2020-04-17 11:12 | NUR ---
Saray spoke with pt's son and he reported that he wanted to try to have his mom go back to therapy and then to [place] f possible but will be using the recomendations from the DR moving forward. Saray provided an update.
--- NOTE | 2020-04-17 12:42 | NUR ---
PATIENT WAS IN DAYROOM SITING IN WHEELCHAIR WHEN CARE ASSUMED. PATIENT IS ALERT, AWAKE, CHOSE NOT TO RESPOND TO ASSESSMENT QUESTIONS. PATIENT TOOK MORNING MEDICATION CRUSHED IN APPLE SSOURCE WITH LOTS OF ENCOURAGEMENT. PATIENT TAKEN TO BATHROOM BY THIS DEBURRER MACHINE, AND NOTED THEAT PATIENT CONTINUE TO HAVE BLOOD IN HER URINE. DR. SIMENTAL PAGED, SHE CALLED BACK AND GAVE OKAY TO GO AHEAD AND ADMINISTER LOSARTAN EVEN THOUGH LISIOPRIL HAS ALREADY BEEN ADMINISTERED. DR.. SIMENTAL NOTIFIED OF BLOOD IN PATIENT'S URINE, AND POOR APPETITE. DR. EASON GAVE ORDER FOR SODIUM CHLORIDE 0.9% 1000ML TO INFUSE AT 250ML/HR. AND SHE ALSO GAVE LAB ORDER. IV TEAM NOTIFIED, ACCESS GAINED TO LEFT ARM, N/S STARTED AT 1209HRS, INFUSING WITHOUT DIFFICULTY, NO SIGN OF INFILTRATION NOTED. APPETITE REMAIN VERY POOR, PATIENT CHOOSE NOT TO EAT LUNCH DESPITE ENCOURAGEMENT FROM MULTIPLE STAFF. AFFECT IS FLAT, AND BLUNTED, MOOD SI DEPRESSED. NO AGGRESSION OR AGITATION NOTED AT THIS TIME, WILL MONITOR FOR SAFETY.
[2020-04-17 14:31] LABS: HEMATOCRIT 38.1 % (37.0-47.0); HEMOGLOBIN 12.5 gm/dL (12.0-15.0)
[2020-04-17 20:38] VITALS: BP 120/56
[2020-04-17 23:25] VITALS: BP 120/56
--- NOTE | 2020-04-18 03:08 | NUR ---
Assumed care of patient this pm shift. Patient stares off and did not respond to verbal stimuli similar to a catatonic state. Patient takes medications crushed in pudding and spit out most of what was given. Patient is alert and oriented to self only. Patient has small amout of hematuria in her urine. Patient does not respond to the hi/si questions. Patient is a falls risk and uses a wheel chair. Patients assessment shows no signs of acute distress. Patients affect is flat. Patient did not voice any concerns this evening as I could not get her to speak to me. We will continue to monitor per hospital policy.
--- NOTE | 2020-04-18 18:34 | NUR ---
PT WITHDRAWN, REFUSING TO ANSWER QUESTIONS OR INTERACT WITH STAFF TODAY. REFUSED MEDS AND SOME MEALS. EARLY EVENING PT BEGAN TO GET OUT OF WHEELCHAIR, WAS NOT RE-DIRECTABLE. WHEN ATTEMPTING TO CLEAN PT SOILED BRIEF, PT WAS ACTIVELY RESISTANT AND REQUIRED ADDITIONAL SUPPORT FROM PHYSICIAN. PT YELLING OUT RANDOM PHRASES AND DOES NOT MAKE SENSE WHEN SPEAKING. PT ABLE TO BE REDIRECTED AFTER APPROX 30-40 MIN.
[2020-04-18 20:26] VITALS: BP 136/74
--- NOTE | 2020-04-19 05:56 | NUR ---
Pt oriented to self. Confused. Pt was in the dayroom on a recliner at time of assessment. Pt was cooperative with assessment. Pt took meds whole with no hesitation. Pt slept on the recliner in the dayroom. Pt slept for few hours. Pt currently awake, sitting in the recliner. Will continue to monitor.
[2020-04-19 07:34] VITALS: BP 150/57
--- NOTE | 2020-04-19 16:52 | NUR ---
Alert to name only. Sitting in recliner and holding R arm straight up in the air and moving it up and down. Resistant to eating and to meds, took meds with alot of encouragement crushed in yogurt. Much more alert with alot of confused speech later in afternoon. No speech/behavior suggestive of SI/HI.Breath sounds clear. Reg HR auscultated. Color pink with brisk capillary refill and palpable peripheral pulses. No edema noted. Brief dry. Active bowel sounds over soft, rounded abdomen.
[2020-04-19 17:51] LABS: HEMATOCRIT 32.8 % (37.0-47.0); HEMOGLOBIN 11.3 gm/dL (12.0-15.0)
[2020-04-19 20:24] VITALS: BP 97/62
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
[2020-04-20 08:00] VITALS: BP 143/59
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
[2020-04-20 13:25] VITALS: BP 143/59
[2020-04-20 13:52] LABS: HEMATOCRIT 32.5 % (37.0-47.0); HEMOGLOBIN 11.1 gm/dL (12.0-15.0)
[2020-04-20 19:41] VITALS: BP 143/59
[2020-04-20 20:20] VITALS: BP 143/59
[2020-04-20 21:15] VITALS: BP 143/59
--- NOTE | 2020-04-21 02:38 | NUR ---
HALDOL 1MG IM GIVEN TO PATIENT AT 2140 FOR AGITATION. PATIENT SAT UP IN GERICHAIR IN DAYROOM. BED ALARM ON. PATIENT YELLING OUT RESTLESS, AND TOOK 4 DIFFERENT TIMES TO GET PATIENT TO TAKE ALL OF HER MEDS. PATIENT WAS ASSISTED TO BED AFTER 2199. SHE IS SLEEPING IN BED NOW WITH BED ALARM ON AND BED IN LOW POSITION AND LOCKED. SHE HAS DENIED PAIN TONIGHT. PATIENT IS A/0 X 1. ROUTINE ROUNDS TO ASSESS PATIENT SAFETY AND STATUS. WILL CONTINUE TO MONITOR.
[2020-04-21 07:37] VITALS: BP 124/53
--- NOTE | 2020-04-21 10:58 | NUR ---
Saray spoke with Koby and set up a meeting via ZOOM to accomodate all of the siblings fro 04/22 at 2pm. Saray reported this to Dr marshall and sent the invite to [email or web address]
--- NOTE | 2020-04-21 11:03 | NUR ---
ATTEMPTED TO WORK WITH PATIENT THIS A.M. FOR ADL/THER ACT. PATIENT NOT APPROPRIATE, ACTIVELY HALLUCINATING, NOT FOLLOWING COMMANDS OR PARTICIPATING IN ANY CAPACITY. STATES SHE IS IN ACTIVE LABOR. YELLING/SCREAMING OUT WHEN O.T. INITIATES ANY MOVEMENT FROM RECLINER. PREVIOUS SESSION WITH THIS O.T. PATIENT ACTING SIMILAR. NOT APPROPRIATE FOR ACUTE OT SERVICES AT THIS TIME. WILL SIGN OFF.
[2020-04-21 15:08] LABS: CALCIUM 9.2 mg/dL (8.5-10.1); POTASSIUM 5.2 mmol/L (3.5-5.1)
[2020-04-21 20:14] VITALS: BP 153/54
[2020-04-21 21:05] LABS: SYPHILIS AB Non Reactive (Non Reactive)
[2020-04-22 09:05] VITALS: BP 161/84
[2020-04-22 10:52] LABS: CALCIUM 9.1 mg/dL (8.5-10.1); CREATININE 2.1 mg/dL (0.6-1.0); POTASSIUM 4.4 mmol/L (3.5-5.1)
--- NOTE | 2020-04-22 13:49 | NUR ---
Alert and orientated to person and place. Disorientated to time and situation. States she will do anything to get out of here. States "I am too old to be in a concentration camp." Speech much more coherent with some judaism statements. Participating in groups, actively doing chair yoga this AM. Ate 100% of lunch with assistance. Very interactive and directive with frequent requests for different foods. Breath sounds clear t/o. Reg HR auscultated. Color pink with brisk capillary refill and palpable peripheral pulses. No edema noted. #22 jelco per R forearm, intact with tape. Site without s/o infection or infiltration. NS hung and infusing per pump at 250cc an hour per order d/t elevated BUN and cr. Brief dry this AM. Active bowel sounds over soft, rounded abdomen. States abd uncomfortable when palpated. MOM given PO with some resistance d/t no documented stool since 04/16. Sitting in recliner most of day. Calm and interactive.
--- NOTE | 2020-04-22 14:31 | NUR ---
DIANNE and Dr marshall provided update and set up Koby Gaona as the designated visitor. FAmily is aware that this pt needs LT memory care and they will be providing at least 3 options via email. d/c can be expected early next week. This was a zoom meeting with 4 of her 5 sons.
--- NOTE | 2020-04-22 14:36 | NUR ---
Koby CARBALLO will visit on Tuesday at 1pm. This was reported to the nursing, and added to the white board.
--- NOTE | 2020-04-22 16:05 | EKG ---
[facility] [address] [place] [address] ELECTROCARDIOGRAM REPORT Name: OMER BAUER Room #: 52-A ADM IN M.R.#: [id number] Admission: 04/14/20 Attend Phys: Corona Read DO Discharge: Date of : 35 Report #: [id number] THIS REPORT FOR: cc: Rosie Ibarra MD, Marsha M. MD Couchonnal, Luis F. 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: Lionel SOLANO : 1935 Requested By: Corona Read Order Number: [id number] MD: Boris Springer Measurements Intervals [place] Rate: 82 P: 6 CT: 169 QRS: 142 QRSD: 129 T: 35 QT: 415 QTc: 485 Interpretive Statements Sinus rhythm RBBB and LPFB Borderline ST elevation, lateral leads Baseline wander in lead(s) II,aVF Compared to ECG 04/14/2020 06:20:55 Electronically Signed On 04-22-2020 16:04:59 CDT by Boris Springer [email or web address] <ELECTRONICALLY SIGNED> By: Boris Springer MD 04/22/20 1604 1615 1615 Boris Springer MD /EPI
[2020-04-22 19:57] VITALS: BP 132/60
[2020-04-22 22:18] VITALS: BP 132/60
--- NOTE | 2020-04-23 03:13 | NUR ---
Assumed care of patient this pm shift. Patient sitting in the mileu with peers in a david chair. Patient appears to be in good spirits and is speaking to the rn this evening which is a change from the last time rn worked with patient and she did not speak. Patient denies pain. Patient denies hi/si. Patient is medication adherent and takes medications whole with thin fluids. Patient is alert and oriented to self only. Patient is considered a falls risk and is wearing a yellow shirt. Patients affect is blunted. Patient did not voice any new concerns this evening. Patient needs assistance x1-2 to toilet. Patient uses a wheelchair to ambulate. We will continue to monitor per hospital policy.
[2020-04-23 05:58] LABS: CALCIUM 8.6 mg/dL (8.5-10.1); CREATININE 1.6 mg/dL (0.6-1.0); POTASSIUM 3.8 mmol/L (3.5-5.1)
[2020-04-23 07:31] VITALS: BP 138/63
--- NOTE | 2020-04-23 08:48 | NUR ---
ASSUMED CARE AT 0700 THIS MORNING. PT. SITTING IN RECLINING CHAIR. THIS RN TOOK THE PT. MEDICATIONS TO HER, CRUSHED AND IN APPLESAUCE. SHE KEPT PUSHING THIS COSTUME SHOP MANAGER AWAY, AND SPITTING OUT THE MEDICATIONS. THIS COSTUME SHOP MANAGER TOOK HER 1 MG HALDOL PO AND CRUSHED IN CHOCOLATE ICECREAM. PT. TOOK THIS.
--- NOTE | 2020-04-23 12:13 | NUR ---
NEW PHYSICIAN ORDERS RECEIVED FOR O.T. EVALUATION. Pt RECENTLY DISCHARGED FROM O.T. DUE TO NOT COMPLYING/FOLLOWING SIMPLE DIRECTIONS. TODAY ATTEMPTED TO HAVE Pt PARTICIPATE IN A SIMPLE ADL TASK, BRUSHING TEETH. WHEN ASKED IF SHE WANTED TO, Pt NODDED HER HEAD YES. WHEN A TOOTHBRUSH WITH PASTE ON IT WAS GIVEN TO THE Pt, THE Pt SMEARED THE PASTE ON THE TABLE THEN BENT THE BRUSH IF TO BREAK IT. WHEN/IF Pt IS OBSERVED TO COMPLY WITH TASKS BY UNIT STAFF, O.T. CAN RE-ATTEMPT. RN AND DR. SOLANO INFORMED.
--- NOTE | 2020-04-23 12:41 | NUR ---
Saray sent referral to [facility] -both have clinically accepted already. Nino ernst, [facility], and [facility].
[2020-04-23 13:09] VITALS: BP 138/63
--- NOTE | 2020-04-23 13:16 | NUR ---
ASSUMED CARE AT 0700 TODAY. PT. IS UP IN RECLINING CHAIR. SHE IS SLEEPING. THIS SCIENTIFIC DIRECTOR ATTEMPTED TO GIVE HER THE MORNING MEDICATIONS. SHE SPIT THEM OUT OVER AND OVER AGAIN. THEY WERE CRUSHED AND IN APPLESAUCE. A PRN HALDOL 1 MG WAS CRUSHED AND PUT IN ICE CREAM. SHE DID TAKE THAT. INFORMED DR. PEOPLES OF THE SAME. SHE IS REFUSING TO EAT OR TAKE MEDICATIONS TODAY. INFORMED OF THE ABSENCE OF ORAL INTAKE WHEATHER MEDICATIONS OR FOOD. HE VERBALIZED UNDERSTANDING.
[2020-04-23 19:54] VITALS: BP 139/56
[2020-04-23 23:01] VITALS: BP 139/56
--- NOTE | 2020-04-24 03:47 | NUR ---
Assumed care of patient this pm shift. Patient sitting in david chair in the [facility]. Patient is alert and oriented to self only. Patient refused her medications this evening by spitting them out. Patient denies pain. Patient does not appear to have hi/si. Patients assessment shows no signs of acute distress. Patient is a falls risk and has on a yellow shirt. Around midnight patient became agitated and unconsolable. The nurse practioner was called and haldol was given. The haldol appeared to work and patient is currently resting quietly waking up intermittently. Patients affect is variable. Patient did not voice any coherent concerns this evening. We will continue to monitor per hospital policy.
--- NOTE | 2020-04-24 09:10 | NUR ---
ASSUMED CARE AT 0700 THIS MORNING. PT. IN RECLINING CHAIR YELLING. SHE PUSHED HER LIPS TOGETHER AND REFUSED TO TAKE ANY ORAL INTAKE, FOOD OR MEDICATIONS. SHE WAS UNCOOPERATIVE WITH ASSESSMENT ALSO. SHE IS CURLED UP IN THE CHAIR. WHEN ATTEMPTING TO ASCULTATE HER, SHE PUT HER HAND UP IN A "CLAW" FASHION. THIS STRIPE MARKER HELD HER HAND SO SHE COULD NOT SCRATCH ME. SHE IS CURRENTLY YELLING "54!!!" OVER AGAIN, AND WAVING HER HANDS ACROSS THE AIR.
[2020-04-24 09:16] VITALS: BP 139/56
[2020-04-24 09:17] VITALS: BP 106/60
[2020-04-24 10:33] LABS: CALCIUM 9.4 mg/dL (8.5-10.1); CREATININE 1.4 mg/dL (0.6-1.0); POTASSIUM 5.2 mmol/L (3.5-5.1)
--- NOTE | 2020-04-24 11:03 | NUR ---
Saray and Dr marshall called Koby and asked that he would visit today at 1:30 am
--- NOTE | 2020-04-24 13:12 | NUR ---
DIANNE and Dr marshall met with rodolfo and DIANNE initaited a referral to hospice [facility]. This is pending. If she doesnt qualify the alterbnative will be LTC with hospice- early next week.
--- NOTE | 2020-04-24 14:55 | NUR ---
SARAY recieved and confirmed the [facility] will complete a nurse peer to peer today at 4pm. Saray also reported this to nursing. they are aware that they can call [employer] and request a [email or web address] van [phone] if the d/c can happen today. Saray then returned a phone call to K[facility] regarding the d/c plans.
--- NOTE | 2020-04-24 15:11 | NUR ---
Saray finally heard back from [facility] and theya re not taking any pt's due to a COVID outbreak. Saray then called and confirmed that [facility] [phone] is the [facility] if hospice house denies the admission. Saray then reported this to Koby. Will follow up in the AM about the d/c
--- NOTE | 2020-04-24 16:00 | NUR ---
No response to questions r/t orientation. Appears to sleep without s/o distress. Required 2 person assist to lift from recliner and change clothes. Incontinent of large amt of yellow urine and smear of brown stool. Repositioned and new chair alarm placed. Two hours later she was calm with confused speech. Very resistant to ensure supplement when offered but then drank 12 oz H2O without difficulty in a couple of minutes. Awake and alert sitting in recliner with peers.
[2020-04-24 20:52] VITALS: BP 142/45
--- NOTE | 2020-04-25 06:14 | NUR ---
Assumed care of patient @ 2100 on 04/25/20, patient in bed eyes closed, respirations even and unlabored. Bed in low position, bed alarm set. Will continue to monitor for patient safety and comfort.
[2020-04-25 07:46] VITALS: BP 131/73
--- NOTE | 2020-04-25 10:01 | NUR ---
Assumed care 0700. No complaint voiced. Upon initial introduction earlier in shift patient had stripped off all her clothes except her disposable brief. For morning snack she tried eating ice cream with her fingers.
--- NOTE | 2020-04-25 10:43 | NUR ---
When asking patient questions she does not make sense. She holds her right arm up in the air. She has slight tremor with upper extremities. Keeps her eyes closed, mouth open. When offered some lemon water she grabbed the cup and squeezed it s hard as she could, spilling it. IT is difficult to know how truthful the answers are that she gives. She holds her neck stiffly with head away from the recliner. She is dozing at intervals.
--- NOTE | 2020-04-25 12:40 | NUR ---
Guardian K[facility] Gaona was called and approved of placement in [facility] witnessed by RN's Nubia and Alejandra. Report called to the nurse at [facility]. Morphone 10 mg given SL [id number]. Trnsporters here transferring her to their cart. She ws dismissed with two transporters with papers and watch to [facility].
--- NOTE | 2020-04-25 13:42 | NUR ---
Saray faxed the d/c orders and summary to [facility]. SARAY also set up stretcher van for pt for a olive picker at 12;30pm.
== END 2020-04-25 12:30 | disposition hospice, home (50) | DRG 56 ==
LOC: ER 05:23 → EROBS 14:43 → SBH 14:43
PROVIDERS: Emergency Medicine; Hospitalist; ADMIT Psychiatry & Neurology Psychiatry; ATTEND Psychiatry & Neurology Psychiatry
DX: G30.9 Alzheimer's disease, unspecified (principal); F02.81 Dementia in other diseases classified elsewhere, unspecified severity, with behavioral disturbance; G93.41 Metabolic encephalopathy; N17.9 Acute kidney failure, unspecified; F01.51 Vascular dementia, unspecified severity, with behavioral disturbance; F30.9 Manic episode, unspecified; N39.0 Urinary tract infection, site not specified; E87.0 Hyperosmolality and hypernatremia; E87.1 Hypo-osmolality and hyponatremia; E78.5 Hyperlipidemia, unspecified; I25.10 Atherosclerotic heart disease of native coronary artery without angina pectoris; I48.91 Unspecified atrial fibrillation; I10 Essential (primary) hypertension; I73.9 Peripheral vascular disease, unspecified; E86.0 Dehydration; E87.8 Other disorders of electrolyte and fluid balance, not elsewhere classified; E87.5 Hyperkalemia; B96.20 Unspecified Escherichia coli [E. coli] as the cause of diseases classified elsewhere; R31.9 Hematuria, unspecified; Z51.5 Encounter for palliative care; Z66 Do not resuscitate; Z20.828 Contact with and (suspected) exposure to other viral communicable diseases; Z95.818 Presence of other cardiac implants and grafts; I25.2 Old myocardial infarction; Z98.42 Cataract extraction status, left eye; Z98.41 Cataract extraction status, right eye; Z79.82 Long term (current) use of aspirin; Z79.899 Other long term (current) drug therapy
CPT/HCPCS: 10880